=== PATIENT | female | born 1990 | race Caucasian/White ===

== ENCOUNTER → 2021-02-05 | Outpatient (CLI) | payer MEDICAID ==
[~2021-02-05] MED LIST: DOXYCYCLINE 10100 MG PO; FLEXERIL 1010 MG/TAB PO; LORTAB 5/500 501 TAB PO; NAPROSYN500 MG PO; NO HOME MEDICATIONS; NORCO 325 MG-51 TAB PO; PROAIR HFA0.09 MG/AC; ZITHROMAX 250M250 MG PO
== END ==
LOC: COL.RAD 12-16 10:30
DX: M25.531 Pain in right wrist (principal)

== ENCOUNTER 2022-04-06 09:04 | Emergency (ER) | payer MEDICAID ==
[~2022-04-06] VITALS: Ht 327.7 cm; Wt 70.0 kg
[2022-04-06 09:07] VITALS: TEMP 98
[2022-04-06] MEDS ORDERED: MOTRIN 800800 MG/TAB PO (09:33)
[2022-04-06] MEDS ORDERED: DOXYCYCLINE 10100 MG PO (09:33)
[2022-04-06 10:01] VITALS: BP 110/70; PULSE 88
== END 2022-04-06 10:02 | disposition home or self-care (01) ==
LOC: COL.ER 09:04
DX: K12.2 Cellulitis and abscess of mouth (principal); H66.93 Otitis media, unspecified, bilateral; F17.290 Nicotine dependence, other tobacco product, uncomplicated; Z91.040 Latex allergy status; Z88.0 Allergy status to penicillin; Z28.310 Unvaccinated for COVID-19
CPT/HCPCS: J0696; J1100

== ENCOUNTER 2022-06-23 13:08 | Emergency (ER) | payer MEDICAID ==
[~2022-06-23] VITALS: Ht 172.7 cm; Wt 70.0 kg
[~2022-06-23 13:08] MED LIST changes: +MOTRIN 800800 MG/TAB PO
[2022-06-23 13:43] LABS: BASO % 0.6 % (0.0-2.0); EOS # 0.1 K/mm3 (0.0-0.7); EOS % 1.1 % (0.0-4.0); GRAN # 4.2 K/mm3 (1.4-6.5); GRAN % 68.2 % (42.2-75.2); HEMATOCRIT 40.6 % (37.0-47.0); HEMOGLOBIN 13.6 g/dl (12.5-16.0); LYMPH # 1.5 K/mm3 (1.2-3.4); LYMPH % 24.7 % (20.0-51.0); MEAN CELL VOLUME 83 fl (80.0-100.0); MEAN CORPUSCULAR HEMOGLOBIN 28 pg (27-31); MEAN CORPUSCULAR HGB CONC 34 g/dl (33.0-37.0); MONO # 0.3 K/mm3 (0.1-0.6); MONO % 5.2 % (1.7-9.3); PLATELET COUNT 229 K/mm3 (130-400); RED BLOOD COUNT 4.87 M/mm3 (4.10-5.30); REDCELL DISTRIBUTION WIDTH-CV 14.7 % (11.5-14.5)
[2022-06-23 13:49] LABS: COLLECTION METHOD CLEAN CATCH
[2022-06-23 13:55] LABS: PH 6.5 (5.0-8.5); URINE APPEARANCE Clear (CLEAR/HAZY); URINE BLOOD TRACE-INTACT (NEGATIVE); URINE COLOR Yellow (YELLOW); URINE GLUCOSE Negative (NEGATIVE); URINE KETONE Negative (NEGATIVE); URINE NITRATE Negative (NEGATIVE); URINE PROTEIN(semi-quant) Negative (NEGATIVE); URINE UROBILINOGEN 0.2 E.U/dL (0.2-1.0)
[2022-06-23 13:56] LABS: SQUAMOUS EPITHELIAL 0-2 /hpf (0-10); URINE BACTERIA None Seen /hpf (NONE SEEN); URINE RBC 0-2 /hpf (0-2)
[2022-06-23 14:01] LABS: ALKALINE PHOSPHATASE 41 U/L (40-150); ANION GAP 11 mmol/L (7-16); AST,SGOT 15 U/L (5-34); BILIRUBIN,TOTAL 0.5 mg/dL (0.2-1.2); BLOOD UREA NITROGEN 6 mg/dL (7-19); CALCIUM 9.2 mg/dL (8.4-10.2); CARBON DIOXIDE 20 mmol/L (22-29); CHLORIDE 108 mmol/L (98-107); CREATININE, serum 0.76 mg/dL (0.57-1.11); GLUCOSE 88 mg/dL (70-99); LIPASE 26 U/L (8-78); SODIUM 139 mmol/L (136-145); TOTAL PROTEIN 7.6 gm/dL (6.2-8.1)
[2022-06-23 14:06] LABS: ALANINE AMINOTRANSFERASE < 6 U/L (0-55)
[2022-06-23 16:15] VITALS: BP 105/65; PULSE 87; TEMP 98.1
== END 2022-06-23 16:15 | disposition home or self-care (01) ==
LOC: COL.ER 13:08
PROVIDERS: Emergency Medicine
DX: R10.2 Pelvic and perineal pain (principal); Z32.02 Encounter for pregnancy test, result negative; Z28.310 Unvaccinated for COVID-19
CPT/HCPCS: J1885; J2765